=== PATIENT | male | born 1930 | race Caucasian/White ===

== ENCOUNTER → 2016-12-11 | Outpatient (CLI) | payer OTHER ==
[~2016-12-11] MED LIST: IOPAMIDOL (ISOVUE 370) 100 ML BTL IV ONE
== END ==
LOC: FIMAGING 13:53
PROVIDERS: ATTEND Internal Medicine Cardiovascular Disease
DX: I71.2 Thoracic aortic aneurysm, without rupture (principal); J43.9 Emphysema, unspecified; I31.3 Pericardial effusion (noninflammatory); I50.31 Acute diastolic (congestive) heart failure; I35.1 Nonrheumatic aortic (valve) insufficiency
CPT/HCPCS: 71275; 74175; Q9967

== ENCOUNTER → 2016-12-16 | Outpatient (CLI) | payer OTHER | LOC: BHFA 10:45 | PROVIDERS: ATTEND Internal Medicine Cardiovascular Disease | DX: I35.1 Nonrheumatic aortic (valve) insufficiency (principal); I10 Essential (primary) hypertension; R06.00 Dyspnea, unspecified ==

== ENCOUNTER 2016-12-29 07:59 | Day surgery (SDC) | payer OTHER ==
[2016-12-29] MEDS ORDERED: DIAZEPAM 5 MG TAB PO ONE (08:01)
[2016-12-29] MEDS ORDERED: NS 1,000 ML IV ONE (08:01)
[2016-12-29] MEDS ORDERED: ASPIRIN EC 325 MG TAB PO ONE (08:01)
[2016-12-29] MEDS ORDERED: diphenhydrAMINE 25 MG CAP PO ONE (08:01)
[2016-12-29] MEDS ORDERED: FAMOTIDINE 20 MG TAB PO ONE (08:01)
--- NOTE | 2016-12-29 08:26 | CPEKG ---
Heart Rate: 46 RR Interval: 1304 QRSD Interval: 148 QT Interval: 520 QTC Interval: 455 QRS [place]: -57 T Wave [place]: 46 EKG Severity - ABNORMAL ECG - EKG Impression: ATRIAL FLUTTER/FIBRILLATION, A-RATE 288 EKG Impression: RBBB AND LAFB EKG Impression: LEFT VENTRICULAR HYPERTROPHY EKG Impression: LATERAL Q WAVES, PROBABLY DUE TO LVH Electronically Signed By: Rajiv Evans 29-Dec-2016 09:03:04
[2016-12-29 08:50] LABS: % IMMATURE GRANULYOCYTES 0.6 % (0.0-1.1); ABSOLUTE IMMATURE GRANULOCYTES 0.04 10^3/uL (0.00-0.10); ADD DIFF? NO; ADD MORPH? NO; ADD SCAN? NO; ATYPICAL LYMPHOCYTE FLAG 0 (0-99); FRAGMENT RBC FLAG 0 (0-99); HEMATOCRIT 41.3 % (40.0-51.0); HEMOGLOBIN 13.4 g/dL (13.7-17.5); LEFT SHIFT FLG 10 (0-99); LIPEMIA HEMOLYSIS FLAG 80 (0-99); MEAN CELL HEMOGLOBIN 33.1 pg (27.9-34.1); MEAN CELL HEMOGLOBIN CONCENTR. 32.4 g/dL (32.4-36.7); MEAN PLATELET VOLUME 11.3 fL (8.7-11.7); PLATELET CLUMPS FLAG 0 (0-99); PLATELET COUNT 154 10^3/uL (150-400); RED BLOOD CELL COUNT 4.05 10^6/uL (4.40-6.38); RED CELL DISTRIBUTION WIDTH 13.7 % (11.5-15.2)
[2016-12-29 09:08] LABS: ANION GAP 12 mEq/L (8-16); CALCIUM 9.2 mg/dL (8.5-10.4); CARBON DIOXIDE 23 mEq/l (22-31); CHLORIDE 107 mEq/L (97-110); CHOLESTEROL 192 mg/dL (140-220); CHOLESTEROL/HDL RATIO 2.63 RATIO (1.00-4.97); GLOMERULAR FILTRATION RATE > 60; GLUCOSE 108 mg/dL (70-100); HIGH DENSITY LIPOPROTEIN 73 mg/dL (40-65); LDL/HDL RATIO 1.29 RATIO (1.00-3.64); LOW DENSITY LIPOPROTEIN 94 mg/dL (80-100); MAGNESIUM 2.1 mg/dL (1.6-2.3); NON-HIGH DENSITY LIPOPROTEIN 119 mg/dL (90-129); POTASSIUM 3.9 mEq/L (3.5-5.2); SODIUM 142 mEq/L (134-144); TRIGLYCERIDE 127 mg/dL (40-150); VERY LOW DENSITY LIPOPROTEINS 25 mg/dL (8-25)
[2016-12-29 09:11] LABS: INR 0.98 (0.83-1.16); PROTIME(PATIENT) 12.9 SEC (12.0-15.0)
[2016-12-29] MEDS ORDERED: LIDOCAINE 1% 300 MG/30 ML SDV ONE (09:13)
[2016-12-29] MEDS ORDERED: IOPAMIDOL (ISOVUE-370) 150 ML BTL IV ONE (09:13)
[2016-12-29] MEDS ORDERED: fentaNYL 100 MCG/2 ML INJ ONE (09:13)
[2016-12-29] MEDS ORDERED: HEPARIN 10,000 UNIT/10 ML MDV ONE (09:13)
[2016-12-29] MEDS ORDERED: MIDAZOLAM 2 MG/2 ML VIAL ONE (09:13)
[2016-12-29] MEDS ORDERED: VERAPAMIL 5 MG/2 ML VIAL ONE (09:13)
[2016-12-29] MEDS ORDERED: NITROGLYCERIN 0.4 MG BTL SL PRN (10:15)
[2016-12-29] MEDS ORDERED: ATROPINE SULFATE 1 MG/10 ML SYR IVP PRN (10:15)
--- NOTE | 2016-12-29 10:19 | PDDXCAT ---
Diagnostic Cath Note - . Date: 12/29/16 Mining Engineering Technologist: Vega Indication: other (New onset heart failure with aortic insufficiency preop) - Procedure Access: left wrist Procedure: left heart catheterization, coronary angiography, left ventriculogram , right heart catheterization - Materials Left Heart Cath size: 5F Left Heart Cath materials: JL5.0, JR4.0, pigtail Right Heart Cath size: 5F - Findings-Left Heart Catheterization LM: Unobstructed LAD: Unobstructed with trifurcation LCX: Unobstructed: Codominant RCA: Unobstructed: Codominant EDP: 15 mm of mercury LVEF: 60% Wall motion: Normal: Aortogram shows thoracic aortic aneurysm with 4+ aortic insufficiency - Findings-Right Heart Catheterization RA: 10 mm of mercury RV: 45 mm of mercury PA: 45/18 mm of mercury PAOP: 15 mm Hg Complications: None Closure method: TR Band Assessment: Severe aortic insufficiency associated with normal left ventricular function. Angiographically normal coronary arteries. Thoracic aortic aneurysm. Plan: Surgical evaluation. Patient Problems: Problems Problem Status Onset CAP (community acquired pneumonia) Acute
== END 2016-12-29 14:00 | disposition home or self-care (01) ==
LOC: FCATH 07:59
PROVIDERS: ATTEND Internal Medicine Interventional Cardiology
PROC: B2111ZZ Fluoroscopy of Multiple Coronary Arteries using Low Osmolar Contrast (ICD-10-PCS; principal; 2016-12-29)
PROC: 3E073KZ Introduction of Other Diagnostic Substance into Coronary Artery, Percutaneous Approach (ICD-10-PCS; principal; 2016-12-29)
PROC: 4A023N8 Measurement of Cardiac Sampling and Pressure, Bilateral, Percutaneous Approach (ICD-10-PCS; principal; 2016-12-29)
PROC: B2151ZZ Fluoroscopy of Left Heart using Low Osmolar Contrast (ICD-10-PCS; principal; 2016-12-29)
DX: I35.1 Nonrheumatic aortic (valve) insufficiency (principal); I71.2 Thoracic aortic aneurysm, without rupture; I50.31 Acute diastolic (congestive) heart failure; I48.91 Unspecified atrial fibrillation; I31.3 Pericardial effusion (noninflammatory); I10 Essential (primary) hypertension; K50.90 Crohn's disease, unspecified, without complications; J44.9 Chronic obstructive pulmonary disease, unspecified; N40.0 Benign prostatic hyperplasia without lower urinary tract symptoms; Z87.891 Personal history of nicotine dependence; Z90.49 Acquired absence of other specified parts of digestive tract
CPT/HCPCS: 93005; 93460; 93567; C1769; J1644; J2250; J3010; Q9967

== ENCOUNTER 2018-03-09 09:37 | Day surgery (SDC) | payer OTHER ==
[2018-03-09] MEDS ORDERED: ATROPINE SULFATE 1 MG/10 ML SYR IVP ONE (09:50)
[2018-03-09] MEDS ORDERED: NS 1,000 ML IV ONE (09:50)
[2018-03-09 10:41] LABS: INR 1.14 (0.83-1.16); PROTIME(PATIENT) 14.8 SEC (12.0-15.0)
--- NOTE | 2018-03-09 10:53 | PDANEPAE ---
ANE History of Present Illness MICHEAL and Cardioversion for atrial flutter ANE Past Medical History - Cardiovascular History Hx Hypertension: Yes Hx Arrhythmias: Yes - Pulmonary History Hx Oxygen in Use at Home: No Hx Sleep Apnea: No - Endocrine History Hx Diabetes: No ANE Review of Systems Review of Systems: - Exercise capacity Exercise capacity: limited by disability METS (RN): 2 METS ANE Patient History - Allergies Allergies/Adverse Reactions: pregabalin [From Lyrica] Allergy (Intermediate, Verified 03/07/18 11:40) Dizziness/vertigo - Home Medications Home medications: home medication list seen and reviewed Home Medications: Aspirin [Aspirin 81mg (*)] 81 mg PO DAILY 08/14/14 [Last Taken 12/28/16] Calcium Carb/Vitamin D3/Vit K1 [Citracal Soft Chew] 1 each PO DAILY 08/14/14 [ Last Taken 02/15/15] Cyanocobalamin [Vitamin B12 1000MCG/ML (*)] 1,000 mcg IM Q30D 08/14/14 [Last Taken 1 Month Ago ~11/28/16] Herbals/Supplements -Info Only 1 ea PO DAILY 08/14/14 [Last Taken Unknown] Lisinopril [Zestril 40 mg (*)] 40 mg PO DAILY 08/14/14 [Last Taken 12/28/16] Cholecalciferol Vit D3 [Vitamin D3 (*)] 1,000 units PO DAILY 02/16/15 [Last Taken 02/18/15] Denosumab [Prolia] 60 mg SQ AD 12/29/16 [Last Taken 02/10/16] Ferrous Sulfate [Ferrous Sulf 325 MG (*)] 325 mg PO DAILY 12/29/16 [Last Taken Unknown] Furosemide [Lasix 20 MG (*)] 30 mg PO DAILY 12/29/16 [Last Taken 12/28/16] Lipase 24,000/Amylase/Protease [Creon 24 (*)] 2 cap PO TIDMEAL 12/29/16 [Last Taken 12/28/16 18:00] Mecobal/Levomefolat Ca/B6 Phos [Foltanx Tablet] 1 each PO DAILY 12/29/16 [Last Taken 12/28/16] amLODIPine BESYLATE [Norvasc 5 mg (*)] 7.5 mg PO DAILY 12/29/16 [Last Taken ] - NPO status NPO Status: no food or drink >8 hours - Anes Hx Anes Hx: no prior problems - Smoking Hx Smoking Status: Never smoked ANE Labs/Vital Signs - Labs Result Diagrams: 03/09/18 10:25 03/09/18 10:25 - Vital Signs Height: 176 cm Weight: 56.3 kg ANE Physical Exam - Airway Neck exam: FROM Mallampati Score: Class 3 Mouth exam: normal dental/mouth exam, poor dentition - Pulmonary Pulmonary: no respiratory distress - Cardiovascular Cardiovascular: other (atrial flutter) - ASA Status ASA Status: IV ANE Anesthesia Plan Anesthesia Plan: GA with mask (GA IV)
[2018-03-09] MEDS ORDERED: PROPOFOL 200 MG/20 ML VIAL ONE (11:04)
[2018-03-09] MEDS ORDERED: LIDOCAINE 2% 2 ML INJ ONE (11:04)
--- NOTE | 2018-03-09 12:08 | POSTANESTH ---
Post Anesthetic Evaluation Cardiovascular Status: Similar to Pre-Op Cond Respiratory Status: Normal, Stable Level of Consciousness/Mental Status: Alert and Oriented Pain Control: Adequate, Prn Tx Ordered Nausea/Vomiting Control: Adequate, Prn Tx Ordered Notes: procedure aborted due to inability to pass MICHEAL probe
--- NOTE | 2018-03-09 13:21 | CPEKG ---
Test Reason : OPEN Blood Pressure : / mmHG Vent. Rate : 050 BPM Atrial Rate : 273 BPM P-R Int : 220 ms QRS Dur : 155 ms QT Int : 538 ms P-R-T Axes : 098 -62 064 degrees QTc Int : 491 ms Atrial flutter RBBB and LAFB Probable left ventricular hypertrophy Confirmed by Tin Meredith ([id number]) on 03/09/2018 1:21:27 PM Referred By: Confirmed By:Tin Meredith
--- NOTE | 2018-03-09 15:23 | PDTEE1 ---
MICHEAL Cardioversion Procedure Procedure: electrical cardioversion, transesophageal echo Indications: other (atrial flutter) Consent: signed and in chart Anticoagulation: eliquis Procedural Details: After consents were signed and risks discussed, the patient was placed on the left lateral side, and sedation was induced. An adult MICHEAL probe was placed, but difficulty with passage was noted. After several attempts were made, a pediatric probe was obtained, and similar difficultly was noted. It was noted that heart rates in atrial flutter were controlled (45-50 bpm), and blood pressure was well maintained. Given the difficulty in passage of the MICHEAL probe on this elderly patient, we opted to terminate the procedure, and discuss options more completely with family. Long discussion with family ensued with discovery of long standing history of Crohn's disease, which has recently noted some degree of progression. Weight loss has been noted according to the family. Discussion about pacemaker in the recent past with Dr. Mark Ferrari (also according to the family). Uncertain on the duration of the atrial flutter that was noted today. Concerns about the rate (in the low 50's) and possible urgent need for pacemaker should cardioversion terminate the atrial flutter that was noted. No MICHEAL was performed. Recommendations for patient to continue Eliquis therapy as at present. Outpatient follow up with Dr. Indiana Evans has been scheduled (and should be maintained). Patient was in agreement with these plans, but more importantly, the family (not exposed to sedation) was also in agreement with these plans. Results: other (ongoing atrial flutter with rates of 50 bpm) Conclusions: other (No MICHEAL or cardioversion was performed.) Patient Problems: Problems Problem Status Onset CAP (community acquired pneumonia) Acute
== END 2018-03-09 14:00 | disposition home or self-care (01) ==
LOC: FCATH 09:37
PROVIDERS: ATTEND Internal Medicine Cardiovascular Disease
DX: Z53.8 Procedure and treatment not carried out for other reasons (principal); I48.92 Unspecified atrial flutter; I35.1 Nonrheumatic aortic (valve) insufficiency; I71.2 Thoracic aortic aneurysm, without rupture; I48.0 Paroxysmal atrial fibrillation; I11.0 Hypertensive heart disease with heart failure; I50.32 Chronic diastolic (congestive) heart failure; Z79.01 Long term (current) use of anticoagulants
CPT/HCPCS: J0461; J2704

== ENCOUNTER 2018-04-05 08:32 | Day surgery (SDC) | payer OTHER ==
[2018-04-05] MEDS ORDERED: fentaNYL 100 MCG/2 ML INJ IVP ONE (08:36)
[2018-04-05] MEDS ORDERED: MIDAZOLAM 2 MG/2 ML VIAL IVP ONE (08:36)
[2018-04-05] MEDS ORDERED: NS 500 ML IV ONE (08:36)
[2018-04-05] MEDS ORDERED: ATROPINE SULFATE 1 MG/10 ML SYR IVP ONE (08:36)
[2018-04-05] MEDS ORDERED: APIXABAN 5 MG TAB ONE (08:58)
--- NOTE | 2018-04-05 09:06 | PDANEPAE ---
ANE History of Present Illness a-flutter s/f DC CV ANE Past Medical History - Cardiovascular History Hx Hypertension: Yes Hx Arrhythmias: Yes - Pulmonary History Hx Oxygen in Use at Home: No Hx Sleep Apnea: No - Endocrine History Hx Diabetes: No ANE Review of Systems Review of Systems: - Exercise capacity METS (RN): 2 METS ANE Patient History - Allergies Allergies/Adverse Reactions: pregabalin [From Lyrica] Allergy (Intermediate, Verified 03/07/18 11:40) Dizziness/vertigo - Home Medications Home medications: home medication list seen and reviewed Home Medications: Apixaban [Eliquis] 03/09/18 [Last Taken 03/09/18] Aspirin EC 81 mg (*) 03/09/18 [Last Taken Unknown] Calcium Carb/Vitamin D3/Vit K1 [Citracal Soft Chew] 03/09/18 [Last Taken Unknown] Dicyclomine [Bentyl 10 MG (*)] 03/09/18 [Last Taken Unknown] Donepezil HCl [Aricept 5 MG (*)] 03/09/18 [Last Taken Unknown] FOLIC ACID 03/09/18 [Last Taken Unknown] Ferrous Sulfate 03/09/18 [Last Taken Unknown] Lasix 40 mg PO 03/09/18 [Last Taken Unknown] Lisinopril [Zestril 40 mg (*)] 03/09/18 [Last Taken 03/09/18] Mecobal/Levomefolat Ca/B6 Phos [Elfolate Plus 3 mg Tablet] 03/09/18 [Last Taken Unknown] Spironolactone 03/09/18 [Last Taken Unknown] amLODIPine BESYLATE [Amlodipine Besylate] 03/09/18 [Last Taken Unknown] Aricept 04/05/18 [Last Taken Unknown] Klor-Con 04/05/18 [Last Taken Unknown] Lipase 6,000/Amylase/Protease [Creon 6 (*)] 04/05/18 [Last Taken Unknown] - NPO status NPO Status: no food or drink >8 hours - Anes Hx Anes Hx: no prior problems - Smoking Hx Smoking Status: Never smoked - Alcohol Use Alcohol Use: None - Family Anes Hx Family Anes Hx: none ANE Labs/Vital Signs - Labs Result Diagrams: 04/05/18 09:00 ANE Physical Exam - Airway Neck exam: decreased ROM Mallampati Score: Class 2 Mouth exam: poor dentition - Pulmonary Pulmonary: no respiratory distress - Cardiovascular Cardiovascular: irregularly irregular - ASA Status ASA Status: III ANE Anesthesia Plan Anesthesia Plan: GA with mask Total IV Anesthesia: Yes
[2018-04-05] MEDS ORDERED: LIDOCAINE 2% 100 MG/5 ML SYR ONE (09:07)
[2018-04-05] MEDS ORDERED: PROPOFOL 200 MG/20 ML VIAL ONE (09:07)
[2018-04-05] MEDS ORDERED: SUCCINYLCHOLINE CHLORIDE 200 MG/10 ML SYR IVP ONE (09:07)
[2018-04-05] MEDS ORDERED: APIXABAN 5 MG TAB PO ONE (09:15)
[2018-04-05 09:16] LABS: INR 1.11 (0.83-1.16); PROTIME(PATIENT) 14.5 SEC (12.0-15.0)
--- NOTE | 2018-04-05 09:56 | PDHPUP ---
History & Physical Update H&P update statement: This history and physical update is based on an assessment of the patient which was completed after admission or registration (within 24 hours), but prior to the surgery/procedure. H&P update: H&P reviewed & patient examined, no change in patient's condition since H&P completed
--- NOTE | 2018-04-05 09:57 | PDTEE1 ---
MICHEAL Cardioversion Procedure Procedure: electrical cardioversion Indications: atrial fibrillation Consent: signed and in chart Anticoagulation: eliquis Procedural Details: Pads were placed in anterior-posterior position. Synchronized cardioversion attempt #1: other (70J) Results: normal sinus rhythm Conclusions: successful cardioversion (Clear sick sinus syndrome with profound bradycardia. Likely to need pacer.) Patient Problems: Problems Problem Status Onset CAP (community acquired pneumonia) Acute
[2018-04-05] MEDS ORDERED: PHENYLEPHRINE HCL 100 MCG/ML SYR IVP PRN (10:06)
[2018-04-05] MEDS ORDERED: ALBUTEROL 3 ML DEYVIAL IH PRN (10:06)
[2018-04-05] MEDS ORDERED: NALOXONE HCL 0.4 MG/ML INJ IVP PRN (10:06)
[2018-04-05] MEDS ORDERED: LR 500 ML IV PRN (10:06)
[2018-04-05] MEDS ORDERED: fentaNYL 100 MCG/2 ML INJ IVP PRN (10:06)
[2018-04-05] MEDS ORDERED: ONDANSETRON 4 MG/2 ML VIAL IVP PRN (10:06)
[2018-04-05] MEDS ORDERED: MEPERIDINE 25 MG/0.5 ML AMP IVP PRN (10:06)
[2018-04-05] MEDS ORDERED: ACETAMINOPHEN 500 MG TAB PO PRN (10:06)
--- NOTE | 2018-04-05 10:07 | POSTANESTH ---
Post Anesthetic Evaluation Cardiovascular Status: Normal, Stable Respiratory Status: Similar to Pre-op Cond., Tx Decrease in SpO2 Level of Consciousness/Mental Status: Can Participate in Eval, Mildly Sleepy, Arousable Pain Control: Adequate, Prn Tx Ordered Nausea/Vomiting Control: Adequate, Prn Tx Ordered Complications Possibly Related to Anesthesia: None Noted
--- NOTE | 2018-04-05 17:49 | CPEKG ---
Test Reason : OPEN Blood Pressure : / mmHG Vent. Rate : 062 BPM Atrial Rate : 278 BPM P-R Int : 142 ms QRS Dur : 153 ms QT Int : 473 ms P-R-T Axes : 000 -71 074 degrees QTc Int : 481 ms Atrial flutter RBBB and LAFB Probable LVH with secondary repol abnrm Confirmed by Rajiv Evans ([id number]) on 04/05/2018 5:49:03 PM Referred By: Confirmed By:Rajiv Evans
--- NOTE | 2018-04-05 17:50 | CPEKG ---
Test Reason : OPEN Blood Pressure : / mmHG Vent. Rate : 054 BPM Atrial Rate : 057 BPM P-R Int : 254 ms QRS Dur : 162 ms QT Int : 521 ms P-R-T Axes : 069 -64 067 degrees QTc Int : 494 ms Sinus rhythm Atrial premature complexes in couplets Prolonged DE interval RBBB and LAFB Confirmed by Rajiv Evans ([id number]) on 04/05/2018 5:49:51 PM Referred By: Confirmed By:Rajiv Evans
== END 2018-04-05 11:04 | disposition home or self-care (01) ==
LOC: FCATH 08:32
PROVIDERS: ATTEND Internal Medicine Interventional Cardiology
PROC: 5A2204Z Restoration of Cardiac Rhythm, Single (ICD-10-PCS; principal; 2018-04-05)
DX: I48.0 Paroxysmal atrial fibrillation (principal); I48.92 Unspecified atrial flutter; I35.1 Nonrheumatic aortic (valve) insufficiency; I71.2 Thoracic aortic aneurysm, without rupture; I50.30 Unspecified diastolic (congestive) heart failure; I10 Essential (primary) hypertension; K50.90 Crohn's disease, unspecified, without complications; N18.9 Chronic kidney disease, unspecified; Z79.01 Long term (current) use of anticoagulants; Z79.82 Long term (current) use of aspirin
CPT/HCPCS: J0330; J0461; J2001; J2704

== ENCOUNTER 2018-05-10 08:57 | Observation (INO) | payer OTHER ==
[2018-05-10] MEDS ORDERED: BACITRACIN IRRIGATION/NS 50,000 UNITS/1,000 ML BTL IRR ONE (09:01)
[2018-05-10] MEDS ORDERED: NS 1,000 ML IV ONE (09:01)
[2018-05-10] MEDS ORDERED: ceFAZolin 2 GM/DEXTROSE 100 ML IV ONE (09:01)
[2018-05-10] MEDS ORDERED: diphenhydrAMINE 25 MG CAP PO ONE (09:01)
[2018-05-10] MEDS ORDERED: DIAZEPAM 5 MG TAB PO ONE (09:01)
[2018-05-10 09:42] LABS: PLATELET COUNT 201 10^3/uL (150-400)
[2018-05-10 09:50] LABS: INR 1.02 (0.83-1.16); PROTIME(PATIENT) 13.6 SEC (12.0-15.0)
--- NOTE | 2018-05-10 10:06 | PDPROPOC ---
Sedation Plan of Care Sedation Plan of Care: vital signs stable, mental status noted, patient educated of risks, benefits, alternatives, patient can tolerate sedation ASA Classification: ASA 2 Planned drugs: fentanyl, midazolam Mallampati Score: Class 1 Mallampati Reference Image: Patient passed 3-3-2 rule?: Yes
[2018-05-10] MEDS ORDERED: BUPIVACAINE 0.5% 30 ML SDV ONE (10:13)
[2018-05-10] MEDS ORDERED: LIDOCAINE 1% 300 MG/30 ML SDV ONE (10:13)
[2018-05-10] MEDS ORDERED: fentaNYL 100 MCG/2 ML INJ ONE (10:13)
[2018-05-10] MEDS ORDERED: MIDAZOLAM 2 MG/2 ML VIAL ONE (10:13)
[2018-05-10] MEDS ORDERED: IOPAMIDOL (ISOVUE-300) 50 ML VIAL ONE (10:13)
[2018-05-10] MEDS ORDERED: LIDO/EPI 1% **for epidural** 30 ML SDV ONE (10:13)
--- NOTE | 2018-05-10 11:11 | PDCTREPORT ---
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 After obtaining informed consent patient brought to cardiac catheterization lab. Special attention was made to the potential of pneumothorax in light of patient's body stature. The left subclavian fossa was sterilely prepped and draped and infiltrated 2% xylocaine. A subclavian venogram was performed. Using a 10 blade an incision was made below the clavicle. Using combination of sharp blunt dissection the Bovie catheter pacemaker pocket was created. A bacitracin soaked sponge was placed in the pocket. Using 18 gauge percutaneous needle subclavian vein was entered x2 on the left. There was a small puff of air concerning for potential pneumothorax. Guidewire advanced into the right heart. Using 6 Portuguese safety sheaths leads were advanced in the RV apex right atrial appendage. Appropriate sensitivities and thresholds were confirmed including flutter waves in the right atrium. Appropriate slack was obtained under fluoroscopy. Sheaths were torn away leads were secured to the fascia using 0 Ethibond x2. Bacitracin soaked sponge was removed. Generator was delivered to the field and attached to the leads after confirming serial numbers. Leads were attached to the generator. Set screws were tightened per industry standards. The entire system was coiled into the pocket. Standard three-layer closure was used to close the skin. Pressure dressing was applied. Under fluoroscopy no pneumothorax is identified. Pressure dressing was applied the patient is taken to recovery for continued care Conclusions: Successful implantation of dual-chamber pacemaker. For details the device please see the attached computer report. Solia S 53 serial [id number] this is the RV lead. Right ventricular sensing was 7.3 m V. Impedance 487 Ohms. Capture 0.9 volts with a pulse with a 0.4 milliseconds. Solia S45 [id number] this is the right atrial lead. Flutter waves 1 mV. Impedance 380 Ohms. The device is a Edora 8 [id number] Post procedure chest xray revealed a 2.5 cm apical pneumothorax. Patient was clinically stable with normal 02 saturation and no tachypnea. Surgical consultation was obtained. I followed up with the patient at 16:30. he remained hemodynamically stable. Chest xray will be obtained in the am. No indication for chest tube at this time. Patient Problems: Problems Problem Status Onset Sick sinus syndrome with tachycardia Acute Sick sinus syndrome with tachycardia Acute CAP (community acquired pneumonia) Acute - ICD10 Problem Qualifiers (1) Sick sinus syndrome with tachycardia (2) Sick sinus syndrome with tachycardia
--- NOTE | 2018-05-10 15:42 | ASMTCMCOM ---
CM Note CM Note Notes: Pt is s/p a planned pacer placement. He lives with his in [place]. Anticipate d/c with no CM needs when mediically cleared but will continue to follow for any change in needs. Date Signed: 05/10/2018 03:42 PM Electronically Signed By:CLARITA Miller
--- NOTE | 2018-05-10 16:48 | PDSURGCRDT ---
CardioThoracic Surgery Note Date of Surgery: 05/10/18 (PPM implant this morning) Post-Op Day(#): 0 - Objective Objective: Vital Signs Temp Pulse Resp BP Pulse Ox 36.5 C 69 15 136/53 H 97 05/10/18 16:36 05/10/18 16:36 05/10/18 16:36 05/10/18 16:36 05/10/18 16:36 Laboratory Results 05/10/18 09:25 05/10/18 09:25 05/09/18 05/10/18 05/11/18 05:59 05:59 05:59 Intake Total 600 Output Total 75 Balance 525 Exam Temp Pulse Resp BP Pulse Ox 36.5 C 69 15 136/53 H 97 05/10/18 16:36 05/10/18 16:36 05/10/18 16:36 05/10/18 16:36 05/10/18 16:36 O2 (L/minute) 2 Constitutional: no apparent distress Respiratory: no respiratory distress Neurologic: AAOx3 Psychiatric: interacting appropriately (CXR shows small pneumothorax this morning. Stable on exam this afternoon. Repeat CXR in am)
[2018-05-10] MEDS ORDERED: APIXABAN 2.5 MG TAB PO SCH (22:00)
[2018-05-10] MEDS ORDERED: DONEPEZIL HCL 5 MG TAB PO SCH (22:30)
--- NOTE | 2018-05-10 23:01 | SOAPPROG ---
SOAP Progress Note Assessment/Plan: Assessment: 1.Small iatrogenic pneumothorax 2. S/P permanent pacemaker 3. Tachy-riya syndrome with aflutter Doing well post procedure. Small pneumothorax without compromise. No indication for chest tube. FOllowup xray in am. 05/10/18 22:58 Subjective: no chest pain or shortness of breath. Objective: Vital Signs Temp Pulse Resp BP Pulse Ox 36.6 C 69 15 143/56 H 91 L 05/10/18 19:34 05/10/18 19:34 05/10/18 19:34 05/10/18 19:34 05/10/18 19:34 Laboratory Results 05/10/18 09:25 05/10/18 09:25 05/09/18 05/10/18 05/11/18 05:59 05:59 05:59 Intake Total 1050 Output Total 75 Balance 975 PT 13.6 SEC (12.0-15.0) 05/10/18 09:25 INR 1.02 (0.83-1.16) 05/10/18 09:25 Cxray reveiwed. Physical Exam - Physical Exam General Appearance: alert, no apparent distress Neck: full range of motion Respiratory: lungs clear, No wheezing Cardiac/Chest: regular rate, rhythm Neuro/Psych: no motor/sensory deficits, alert, normal mood/affect ICD10 Worksheet Patient Problems: Problems Problem Status Onset CAP (community acquired pneumonia) Acute Sick sinus syndrome with tachycardia Acute Sick sinus syndrome with tachycardia Acute - ICD10 Problem Qualifiers (1) Sick sinus syndrome with tachycardia (2) Sick sinus syndrome with tachycardia
[2018-05-10] MEDS: ASPIRIN 81 MG CHEWABLE TAB PO SCH (23:13)
[2018-05-10] MEDS: APIXABAN 2.5 MG TAB PO SCH (23:13)
[2018-05-10] MEDS ORDERED: ACETAMINOPHEN 500 MG TAB ONE (23:16)
[2018-05-10] MEDS ORDERED: ACETAMINOPHEN 500 MG TAB PO PRN (23:30)
[2018-05-11] MEDS ORDERED: FOLIC ACID 1 MG TAB PO SCH (09:00)
[2018-05-11] MEDS ORDERED: SPIRONOLACTONE 25 MG TAB PO SCH (09:00)
[2018-05-11] MEDS ORDERED: POTASSIUM CL 10 MEQ TAB PO SCH (09:00)
[2018-05-11] MEDS ORDERED: LISINOPRIL 40 MG TAB PO SCH (09:00)
[2018-05-11] MEDS ORDERED: DICYCLOMINE 10 MG CAP PO SCH (09:00)
[2018-05-11] MEDS ORDERED: FERROUS SULFATE 325 MG TAB PO SCH (09:00)
[2018-05-11] MEDS ORDERED: CALCIUM CARBONATE 500 MG TAB PO SCH (09:00)
[2018-05-11] MEDS: ASPIRIN 81 MG CHEWABLE TAB PO SCH (09:45)
[2018-05-11] MEDS: FUROSEMIDE 20 MG TAB PO SCH ×2 (09:45→15:33)
[2018-05-11] MEDS: APIXABAN 2.5 MG TAB PO SCH (09:48)
[2018-05-11] MEDS: LIPASE 24,000/AMYLASE/PROTEASE (CREON) 1 CAP PO SCH ×2 (10:35→13:05)
[2018-05-11] MEDS ORDERED: ASCORBIC ACID 500 MG TAB PO SCH (12:00)
[2018-05-11] MEDS ORDERED: CHOLECALCIFEROL VIT D3 1,000 UNITS TAB PO SCH (12:00)
--- NOTE | 2018-05-11 14:46 | PDIAF ---
- Diagnosis Diagnosis: 1.Bradycardia 2. Sick Sinus Syndrome 3. Pacemaker Placement 4. Weakness Code Status: Full Code - Medication Management Discharge Medications: Medications to Continue on Transfer Apixaban [Eliquis] 2.5 mg PO BID 05/06/18 [Last Taken 05/06/18] Calcium Citrate [Citracal] 400 mg PO DAILY 05/06/18 [Last Taken 05/09/18 08:00] Cholecalciferol Vit D3 [Vitamin D3 (*)] 2,000 units PO DAILY@12 05/06/18 [Last Taken 05/09/18 08:00] Dicyclomine [Bentyl 10 MG (*)] 10 mg PO BID 05/06/18 [Last Taken 05/09/18] Ferrous Sulfate [Ferrous Sulf 325 MG (*)] 325 mg PO DAILY 05/06/18 [Last Taken 05/09/18 08:00] Folic Acid [Folic Acid 1 MG (*)] 1 mg PO DAILY 05/06/18 [Last Taken 05/09/18 08: 00] Furosemide [Lasix 20 MG (*)] 30 mg PO BID 05/06/18 [Last Taken 05/09/18 08:00] Herbals/Supplements -Info Only 1 ea PO DAILY 05/06/18 [Last Taken 05/09/18 08:00 ] Lipase 24,000/Amylase/Protease [Creon 24 (*)] 2 cap PO TIDMEAL 05/06/18 [Last Taken 05/09/18 18:00] Lisinopril [Zestril 40 mg (*)] 40 mg PO DAILY 05/06/18 [Last Taken 05/09/18 08: 00] Potassium Chloride [Klor-Con 10] 10 meq PO DAILY 05/06/18 [Last Taken 05/09/18 08:00] Spironolactone [Aldactone 25 MG (*)] 25 mg PO DAILY 05/06/18 [Last Taken 08:00] amLODIPine BESYLATE [Amlodipine Besylate] 10 mg PO DAILY 05/06/18 [Last Taken 08:00] Ascorbic Acid [Vitamin C 500 mg (*)] 1,000 mg PO DAILY@12 05/10/18 [Last Taken Unknown] Aspirin [Aspirin 81mg (*)] 81 mg PO DAILY 10/30/18 [Last Taken 05/06/18] Denosumab [Prolia] 60 mg SQ Q180D 05/10/18 [Last Taken Unknown] Acetaminophen [Tylenol ES 500 mg (*)] 500 mg PO Q6 PRN tab 05/11/18 [Last Taken Unknown] Donepezil HCl [Aricept 5 MG (*)] 5 mg PO HS tab 05/11/18 [Last Taken Unknown] Foltanx 1 tab PO DAILY 05/11/18 [Last Taken Unknown] Discharge Medications: Refer to the Discharge Home Medication list for PRN reason. - Orders Services needed: Home Care, Registered Nurse, Certified Buyer Agent, Physical Therapy, Occupational Therapy Home Care Face to Face: I certify that this patient was under my care and that I had the required [id number] encounter meeting the encounter requirements on the discharge day. My findings support the fact that the patient is homebound as defined in Home Care Face to Face Continued: CMS Chapter 7 Medicare Benefits Manual 30.1.1 , The condition of the patient is such that there exists a normal inability to leave home and consequently, leaving home would require a considerable and taxing effort. Isolation Type: None Diet Recommendation: cardiac -low fat low salt Diet Texture: Regular Texture Diet Weigh Patient: weekly [place]: Not applicable Activity/Weight Bearing Restrictions: per PT / OT recommendation Additional Instructions: Pacemaker Precautions for 4 weeks: No lifting with left arm above shoulder level. Keep arm sling on at night for first week. Avoid getting left chest dressing wet. OK Shower after one week. Home Care to follow at home. OT & PT Follow up at [facility] in one week for wound check and pacemaker check. May 17, at 1:[address] pm Follow up with Dr Ferrari one month. Office will call with appointment. - Follow Up Care Current Providers and Referrals: LAI LEE [Primary Care Provider] - Andrew Ferrari MD [Medical Doctor] - (Follow up with Dr Ferrari in one month)
--- NOTE | 2018-05-11 15:39 | ASMTDCNOTE ---
Case Management Discharge Discharge Order Complete? Answers: Yes Patient to Obtain Answers: via Family Medications Transportation Arranged Answers: Family/Friends EMTALA Complete Answers: No Case Management Transport Answers: No Form Complete Faxed Final Orders Answers: Yes Agency/Facility Transfer Answers: Yes Report Printed & Faxed to Receiving Agency Family Notified Answers: Yes Discharge Comments Notes: Pts case discussed w/ BOONE Martin and Meggan RN. Pt is being discharged today. Therapies are recommending HC. CM met w/ pt and family for dispo planning. They are all on board w/ having HC. Referral sent out to numerous HC agencies. [facility] is able to accept. DC orders sent to [facility]. Pts family requested for a hospital bed. CM sent the referral to [facility]. CM provided pts family w/ a copy of the prescription and a copy is in pts chart. CM provided family w/ the phone number for [facility]. CM available for changes. 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
--- NOTE | 2018-05-11 15:40 | ASDISCHSUM ---
Discharge Information Plan Status:Home with Home Health Medically Cleared to Leave:05/11/2018 Discharge Date:05/11/2018 CM D/C Disposition: ADT D/C Disposition:Home Health Service Projected Discharge Date:05/11/2018 11:00 AM Transportation at D/C: Discharge Delay Reason: Follow-Up Date:05/11/2018 11:00 AM Discharge Slot: Final Diagnosis: Placement Information Referral Type:*Home Health Care Services Referral ID:[id number] Provider Name:[facility] Address 1:[address] Address 2: City:[place] Selection Factors: State:[place] Patient Contact Information Contact Name:MOISÉS Relationship: Address:[address] [place] Alternate Phone: State/Zip Code:[place] [address] Email: Financial Information Financial Class:Medicare Advantage Plans Primary Plan Desc:[employer] GOLD MEDICARE Primary Plan Number:[id number] Secondary Plan Desc: Secondary Plan Number: Assessment Information LACE LACE Length of stay for Answers: 1 day current admission Acuity / Level of Answers: No Care: Did the patient have an inpatient admission? # of Emergency department Answers: 0 visits in the last 6 months Score: 1 Date Signed: 05/11/2018 03:39 PM Electronically Signed By:KAUSHAL Oviedo [facility] CM Progress Note CM Note CM Note Notes: Pt is s/p a planned pacer placement. He lives with his in [place]. Anticipate d/c with no CM needs when mediically cleared but will continue to follow for any change in needs. Date Signed: 05/10/2018 03:42 PM Electronically Signed By:CLARITA Miller Case Management Discharge Plan Note Case Management Discharge Discharge Order Complete? Answers: Yes Patient to Obtain Answers: via Family Medications Transportation Arranged Answers: Family/Friends EMTALA Complete Answers: No Case Management Transport Answers: No Form Complete Faxed Final Orders Answers: Yes Agency/Facility Transfer Answers: Yes Report Printed & Faxed to Receiving Agency Family Notified Answers: Yes Discharge Comments Notes: Pts case discussed w/ BOONE Martin and SATISH Broderick. Pt is being discharged today. Therapies are recommending HC. CM met w/ pt and family for dispo planning. They are all on board w/ having HC. Referral sent out to numerous HC agencies. [facility] is able to accept. DC orders sent to [facility]. Pts family requested for a hospital bed. CM sent the referral to [facility]. CM provided pts family w/ a copy of the prescription and a copy is in pts chart. CM provided family w/ the phone number for [facility]. CM available for changes. 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
[2018-05-11 16:27] VITALS: BP 112/51
--- NOTE | 2018-05-12 08:06 | GDS ---
ADMIT DIAGNOSES: 1. Bradycardia. 2. Sick sinus syndrome. 3. Planned placement of dual lead pacemaker. DISCHARGE DIAGNOSES: 1. Status post placement of dual lead pacemaker. 2. Bradycardia. 3. Sick sinus syndrome. 4. Weakness. COURSE OF HOSPITALIZATION: This gentleman is well known to [facility]. He was seen in the office with complaints of fatigue and weakness. He had significant bradycardia with sick sinus syndrome. It was recommended by Dr. Andrew Ferrari that he proceed with pacemaker placement. He was in agreem ent with this plan. He had a previous fall and had an apical pneumothorax. Chest x-ray today shows a reduction of the le ft apical pneumothorax and tiny pleural effusion. There was no evidence of congestive heart failure. Due to his weakness and history of falls he will go home with home health and outpatient OT/PT [facility] home care. His family is present at time of discharge and was in agreement with the plan for [facility] care. DISCHARGE PHYSICAL EXAMINATION: VITAL SIGNS: Blood pressure 112/51, heart rate 69, pacemaker functi oning appropriately, heart rate regular, no murmurs, rubs, or gallops. LUNGS: Sounds are clear to a uscultation. No wheezes, rales, or rhonchi. No peripheral edema noted. Left pectoral pacer site is intact with no bleeding. He does have ecchymosis around the site with minimal tenderness. He has b een up with assistance to the bathroom. At this time, he is stable for discharge with home care. CARDIOTHORACIC PROCEDURE: Implantation of dual-chamber pacemaker. INDICATION: Sick sinus syndrome with tachy-riya syndrome. CONCLUSION: Successful implantation of dual-chamber pacemaker. DISCHARGE PLAN: 1. He will go home with home care and home PT/OT. His requests a hospital bed for home, which has been ordered. 2. Pacemaker precautions were reviewed with him and written instructions were provided. 3. No use of left arm over shoulder level for 4 weeks. 4. Use arm sling at night for sleeping. 5. Assistance to the bathroom until stronger. 6. Followup at [facility] for wound check and pacemaker check on May 17, 2018 at 1:30 in the afternoon. 7. He will need a followup chest x-ray prior to his followup in [address] Ferrari. 8. At this time, he currently is stable for discharge home with the help of home care. /[id number]/MODL
--- NOTE | 2018-05-15 14:49 | CPEKG ---
Test Reason : OPEN Blood Pressure : / mmHG Vent. 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
--- NOTE | 2018-05-15 14:50 | CPEKG ---
Test Reason : OPEN Blood Pressure : / mmHG Vent. Rate : 069 BPM Atrial Rate : 246 BPM P-R Int : 128 ms QRS Dur : 110 ms QT Int : 406 ms P-R-T Axes : 107 -78 087 degrees QTc Int : 435 ms Afib/flut and V-paced complexes Confirmed by Preet Lewis ([id number]) on 05/15/2018 2:49:43 PM Referred By: Confirmed By:Preet Lewis
== END 2018-05-11 16:32 | disposition home health service (06) ==
LOC: FCATH 08:57 → F2W 12:16
PROVIDERS: ADMIT Internal Medicine Interventional Cardiology; ATTEND Internal Medicine Interventional Cardiology
DX: I49.5 Sick sinus syndrome (principal); R53.1 Weakness; I35.1 Nonrheumatic aortic (valve) insufficiency; S27.0XXD Traumatic pneumothorax, subsequent encounter; W19.XXXD Unspecified fall, subsequent encounter; I50.32 Chronic diastolic (congestive) heart failure; I10 Essential (primary) hypertension
CPT/HCPCS: 33208; 71045; 71046; 93005; 97116; 97161; 97165; 97535; C1785; C1898; G0378; G8978; G8979; G8987; G8988; G8989; J0690; J2250; J3010; Q9967

== ENCOUNTER 2018-07-22 11:19 | Day surgery (SDC) | payer OTHER ==
[2018-07-22] MEDS ORDERED: fentaNYL 100 MCG/2 ML INJ IVP ONE (11:21)
[2018-07-22] MEDS ORDERED: MIDAZOLAM 2 MG/2 ML VIAL IVP ONE (11:21)
[2018-07-22] MEDS ORDERED: ATROPINE SULFATE 1 MG/10 ML SYR IVP ONE (11:21)
[2018-07-22] MEDS ORDERED: NS 500 ML IV ONE (11:21)
[2018-07-22 12:15] LABS: INR 1.19 (0.83-1.16); PROTIME(PATIENT) 15.3 SEC (12.0-15.0)
--- NOTE | 2018-07-22 12:31 | PDANEPAE ---
ANE History of Present Illness sick sinus syndrome, a flutter ANE Past Medical History - Cardiovascular History Hx Hypertension: Yes Hx Arrhythmias: Yes Hx Chest Pain: No Hx Coronary Artery / Peripheral Vascular Disease: No Hx CHF / Valvular Disease: No Hx Palpitations: Yes Cardiovascular History Comment: hx of afib, aflutter, s/p pacemaker - Pulmonary History Hx COPD: No Hx Asthma/Reactive Airway Disease: No Hx Recent Upper Respiratory Infection: No Hx Oxygen in Use at Home: No Hx Sleep Apnea: No - Endocrine History Hx Diabetes: No Hypothyroid: No Hyperthyroid: No Obesity: no - Renal History Hx Renal Disorders: No - Liver History Hx Hepatic Disorders: No - Neurological & Psychiatric Hx Hx Neurological and Psychiatric Disorders: No - Cancer History Hx Cancer: No - Congenital Disorder History Hx Congenital Disorders: No - GI History Hx Gastrointestinal Disorders: No - Chronic Pain History Chronic Pain: Yes - Surgical History Prior Surgeries: pacemaker ANE Review of Systems Review of systems is: negative Review of Systems: - Exercise capacity Exercise capacity: <4 METS ANE Patient History - Allergies Allergies/Adverse Reactions: pregabalin [From Lyrica] Allergy (Intermediate, Verified 03/07/18 11:40) Dizziness/vertigo - Home Medications Home medications: home medication list seen and reviewed Home Medications: Apixaban [Eliquis] 2.5 mg PO BID 05/06/18 [Last Taken 07/22/18 06:00] Calcium Citrate [Citracal] 400 mg PO DAILY 05/06/18 [Last Taken 07/21/18 12:00] Cholecalciferol Vit D3 [Vitamin D3 (*)] 2,000 units PO DAILY@12 05/06/18 [Last Taken 07/21/18 12:00] Ferrous Sulfate [Ferrous Sulf 325 MG (*)] 325 mg PO DAILY 05/06/18 [Last Taken 07/21/18 18:00] Folic Acid [Folic Acid 1 MG (*)] 1 mg PO DAILY 05/06/18 [Last Taken 07/21/18 08: 00] Furosemide [Lasix 20 MG (*)] 30 mg PO BID 05/06/18 [Last Taken 07/21/18 15:00] Herbals/Supplements -Info Only 1 ea PO DAILY 05/06/18 [Last Taken 07/21/18 21:00 ] Lipase 24,000/Amylase/Protease [Creon 24 (*)] 2 cap PO TIDMEAL 05/06/18 [Last Taken 07/21/18 18:00] Lisinopril [Zestril 40 mg (*)] 5 mg PO DAILY 05/06/18 [Last Taken 07/21/18 12:00 ] Potassium Chloride [Klor-Con 10] 10 meq PO DAILY 05/06/18 [Last Taken 07/21/18 08:00] Spironolactone [Aldactone 25 MG (*)] 25 mg PO DAILY 05/06/18 [Last Taken 08:00] amLODIPine BESYLATE [Amlodipine Besylate] 10 mg PO DAILY 05/06/18 [Last Taken 18:00] Ascorbic Acid [Vitamin C 500 mg (*)] 1,000 mg PO DAILY@12 05/10/18 [Last Taken 07/21/18 12:00] Denosumab [Prolia] 60 mg SQ Q180D 05/10/18 [Last Taken Unknown] Foltanx 1 tab PO DAILY 05/11/18 [Last Taken 07/21/18 08:00] - NPO status NPO Status: no food or drink >8 hours - Anes Hx Anes Hx: no prior problems - Smoking Hx Smoking Status: Former smoker Marijuana use: No - Alcohol Use Alcohol Use: None - Family Anes Hx Family Anes Hx: none ANE Labs/Vital Signs - Labs Result Diagrams: 07/22/18 11:50 - Vital Signs Height: 178 cm Weight: 51.3 kg ANE Physical Exam - Airway Neck exam: FROM Mallampati Score: Class 2 Mouth exam: normal dental/mouth exam - Pulmonary Pulmonary: no respiratory distress, clear to auscultation - Cardiovascular Cardiovascular: regular rate and rhythym, no murmur, rub, or gallop - ASA Status ASA Status: III ANE Anesthesia Plan Anesthesia Plan: GA with mask Total IV Anesthesia: Yes
[2018-07-22] MEDS ORDERED: PROPOFOL 200 MG/20 ML VIAL ONE (12:43)
--- NOTE | 2018-07-22 13:23 | PDTEE1 ---
MICHEAL Cardioversion Procedure Procedure: electrical cardioversion Indications: atrial fibrillation Consent: signed and in chart Anticoagulation: eliquis Procedural Details: Pads were placed in anterior-posterior position. 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 Synchronized cardioversion attempt #1: [id number] Results: normal sinus rhythm Conclusions: successful cardioversion Patient Problems: Problems Problem Status Onset CAP (community acquired pneumonia) Acute Sick sinus syndrome with tachycardia Acute Sick sinus syndrome with tachycardia Acute
[2018-07-22] MEDS ORDERED: NALOXONE HCL 0.4 MG/ML INJ IVP PRN (13:32)
--- NOTE | 2018-07-22 13:33 | POSTANESTH ---
Post Anesthetic Evaluation Cardiovascular Status: Normal, Stable Respiratory Status: Normal, Stable Level of Consciousness/Mental Status: Can Participate in Eval Pain Control: Adequate, Prn Tx Ordered Nausea/Vomiting Control: Adequate, Prn Tx Ordered Complications Possibly Related to Anesthesia: None Noted
--- NOTE | 2018-07-24 14:33 | CPEKG ---
Test Reason : OPEN Blood Pressure : / mmHG Vent. Rate : 069 BPM Atrial Rate : 087 BPM P-R Int : 192 ms QRS Dur : 166 ms QT Int : 441 ms P-R-T Axes : 000 -80 092 degrees QTc Int : 473 ms Afib/flut and V-paced complexes Confirmed by Toni Sheffield ([id number]) on 07/24/2018 2:32:59 PM Referred By: Confirmed By:Toni Sheffield
--- NOTE | 2018-07-24 14:34 | CPEKG ---
Test Reason : OPEN Blood Pressure : / mmHG Vent. Rate : 080 BPM Atrial Rate : 076 BPM P-R Int : 176 ms QRS Dur : 174 ms QT Int : 447 ms P-R-T Axes : 089 -79 097 degrees QTc Int : 516 ms A-V dual-paced rhythm Confirmed by Toni Sheffield ([id number]) on 07/24/2018 2:33:49 PM Referred By: Confirmed By:Toni Sheffield
== END 2018-07-22 15:04 | disposition home or self-care (01) ==
LOC: FCATH 11:19
PROVIDERS: ATTEND Internal Medicine Interventional Cardiology
PROC: 5A2204Z Restoration of Cardiac Rhythm, Single (ICD-10-PCS; principal; 2018-07-22)
DX: I48.92 Unspecified atrial flutter (principal); I50.32 Chronic diastolic (congestive) heart failure; I11.0 Hypertensive heart disease with heart failure; I71.2 Thoracic aortic aneurysm, without rupture; I34.0 Nonrheumatic mitral (valve) insufficiency; Z95.0 Presence of cardiac pacemaker; Z91.81 History of falling
CPT/HCPCS: J2704